=== PATIENT | male | born 1995 ===

== ENCOUNTER 2021-02-22 21:11 | Inpatient (IN) | payer SELFPAY ==
[2021-02-22] MEDS ORDERED: ONDANSETRON 4 MG/2 ML INJ IV ONE (22:59)
[2021-02-22] MEDS ORDERED: FAMOTIDINE 20 MG/2 ML INJ IV ONE (22:59)
[2021-02-22] MEDS ORDERED: SODIUM CHLORIDE 0.9% 1000 ML 1,000 ML IV ONE (22:59)
[2021-02-22] MEDS ORDERED: MORPHINE 4 MG/1 ML INJ IV ONE (22:59)
--- NOTE | 2021-02-22 23:20 | Emergency Department Report ---
ED Abdominal Pain HPI - General Chief Complaint: Abdominal Pain Stated Complaint: STOMACH PAIN Time Seen by Provider: 02/22/21 21:45 Source: patient Mode of arrival: Ambulatory Limitations: No Limitations - History of Present Illness Initial Comments: This is a 25-year-old male nontoxic, well nourished in appearance, no acute signs of distress presents to the ED with c/o of nausea and vomiting and abdominal pain that started yesterday. Patient describes vomiting as food content and yellow gastric acid. Patient describes abdominal pain as cramping and aching with level of 8/10 primarily to the right lower abdomen. Patient denies any radiation of pain. Patient denies chest pain, short of breath, fever, hemoptysis, blood in stool, chills, headache, stiff neck, numbness or tingling. Patient denies any diarrhea or constipation. Denies any blood in stool. Patient denies any recent travels. Patient denies any allergies or significant past medical history. Google Vietnamese translation has been used throughout physical exam and interview. MD Complaint: abdominal pain -: days(s) Location: RLQ Radiation: none Migration to: no migration Severity: mild Severity scale (0 -10): 8 Quality: cramping, aching Consistency: constant Improves With: nothing Worsens With: nothing Associated Symptoms: nausea, vomiting. denies: diarrhea, fever, chills, constipation, dysuria, hematemesis, hematochezia, melena, hematuria, anorexia, syncope - Related Data Allergies Allergy/AdvReac Type Severity Reaction Status Date / Time No Known Allergies Allergy Unverified 02/22/21 22:03 ED Review of Systems ROS: Stated complaint: STOMACH PAIN Other details as noted in HPI Constitutional: denies: chills, fever Eyes: denies: eye pain, eye discharge, vision change ENT: denies: ear pain, throat pain Respiratory: denies: cough, shortness of breath, wheezing Cardiovascular: denies: chest pain, palpitations Endocrine: no symptoms reported Gastrointestinal: abdominal pain, nausea, vomiting. denies: diarrhea, constipation, hematemesis, melena, hematochezia Genitourinary: denies: urgency, dysuria Musculoskeletal: denies: back pain, joint swelling, arthralgia Skin: denies: rash, lesions Neurological: denies: headache, weakness, paresthesias Psychiatric: denies: anxiety, depression Hematological/Lymphatic: denies: easy bleeding, easy bruising ED Physical Exam - General Limitations: No Limitations General appearance: alert, in no apparent distress - Head Head exam: Present: atraumatic, normocephalic - Eye Eye exam: Present: normal appearance - Neck Neck exam: Present: normal inspection, full ROM. Absent: lymphadenopathy - Respiratory Respiratory exam: Present: normal lung sounds bilaterally. Absent: respiratory distress, wheezes, rales, rhonchi, stridor, chest wall tenderness, accessory muscle use, decreased breath sounds, prolonged expiratory - Cardiovascular Cardiovascular Exam: Present: regular rate, normal rhythm, normal heart sounds. Absent: tachycardia, irregular rhythm, systolic murmur, diastolic murmur, rubs, gallop - GI/Abdominal GI/Abdominal exam: Present: soft, tenderness (RLQ), normal bowel sounds. Absent: distended, guarding, rebound, rigid, diminished bowel sounds - Extremities Exam Extremities exam: Present: normal inspection, full ROM, normal capillary refill. Absent: tenderness - Back Exam Back exam: Present: normal inspection, full ROM. Absent: tenderness, CVA tenderness (R), CVA tenderness (L), muscle spasm, paraspinal tenderness, vertebral tenderness, rash noted - Neurological Exam Neurological exam: Present: alert, oriented X3, normal gait - Psychiatric Psychiatric exam: Present: normal affect, normal mood - Skin Skin exam: Present: warm, dry, intact, normal color. Absent: rash ED Course Vital Signs 02/22/21 21:42 Temperature 99.4 F Pulse Rate 77 Respiratory 18 Rate Blood Pressure 148/78 O2 Sat by Pulse 94 Oximetry - Reevaluation(s) Reevaluation #1: 02/22/21 23:20 Patient is speaking in full sentences with no signs of distress noted. - Consultations Consultation #1: 02/23/21 01:20 Patient has been consulted with Dr. Hernandez (general surgery) about patient history, physical exam, and labs/CT abdomen and agrees to ED plan of care and admission. Consultation #2: 02/23/21 01:21 Patient has been consulted with ARTURO Graves (hospitalist) about patient history, physical exam, and labs/imaging results and accepts patient to services for admission. ED Medical Decision Making - Lab Data Result diagrams: 02/22/21 22:46 09/30/21 22:46 - Radiology Data [facility] [address] [place] [address] Cat Scan Report Signed Patient: KEVIN HOPSON MR#: [id number] : 1995 Acct:[id number] Age/Sex: 25 / M ADM Date: 02/22/21 Loc: ED Attending Dr: Ordering Physician: SULEMAN MARINA NP Date of Service: 02/22/21 Procedure(s): CT abdomen pelvis w con Accession Number(s): [id number] cc: SULEMAN MARINA NP CT ABDOMEN AND PELVIS WITHOUT CONTRAST INDICATION: R.L.Q. abdominal pain CONTRAST: Oral, 100 cc Omnipaque 300 IV COMPARISON: None available. All CT scans at this location are performed using CT dose reduction for ALARA by means of automated exposure control. FINDINGS: Lung bases are clear. No pneumoperitoneum is seen. Mild fatty infiltration of the liver is noted without obvious focal lesion or enlargement. Spleen is not enlarged. No abdominal masses are seen. Gallbladder and bile ducts appear within normal limits. No lymphadenopathy is seen. No free fluid is noted. No urinary or bowel obstructive changes are noted. Pelvic masses are seen. A large appendicolith is seen at the base of the appendix. The appendix distal to this point is dilated to a diameter of up to 12 mm though more distally measures 9 mm. Additional appendicoliths are seen more distally. There appears to be slight wall enhancement and thickening. Slight surrounding inflammation is seen. No evidence of perforation or abscess are noted. IMPRESSION: Early acute appendicitis without obvious complication Signer Name: Chandra Alva MD Signed: 02/23/2021 1:10 AM Workstation Name: [id number] Transcribed By: Dictated By: Chandra Alva MD Electronically Authenticated By: Chandra Alva MD Signed Date/Time: 02/23/21109 DD/ 5 TD/TT: - Medical Decision Making 25-year-old male that presents with acute appendicitis. Patient is stable and was examined by me. Patient placed on n.p.o. Patient received IV resuscitation with Zosyn. Consulted with surgery which agrees to admission. Patient admitted with hospitalist. At time of admission, the patient does not seem toxic or ill in appearance. No acute signs of distress noted. Patient agrees to admission treatment plan of care. No further questions noted by the patient. Google Vietnamese translation has been used throughout the whole ED stay visit physical exam, interview, lab/CT results, reassessment, and disposition. Critical care attestation.: If time is entered above; I have spent that time in minutes in the direct care of this critically ill patient, excluding procedure time. ED Disposition Clinical Impression: Appendicitis Qualifiers: Appendicitis type: acute appendicitis Acute appendicitis type: unspecified acute appendicitis type Qualified Code(s): K35.80 - Unspecified acute appendicitis Disposition: ADMITTED INPATIENT Is pt being admited?: Yes Condition: Stable Time of Disposition: 01:28
[2021-02-22 23:25] LABS: Hematocrit 41.6 % (35.5-45.6); Hemoglobin 14.5 gm/dl (11.8-15.2); Mean Corpuscular HGB Conc 35 % (32-34); Mean Corpuscular Volume 87 fl (84-94); Platelet Count 392 K/mm3 (140-440); Red Blood Count 4.76 M/mm3 (3.65-5.03)
[2021-02-22 23:38] LABS: Alanine Aminotransferase 37 units/L (7-56); Albumin 4.5 g/dL (3.9-5); Blood Urea Nitrogen 11 mg/dL (9-20); Calcium 9.3 mg/dL (8.4-10.2); Hemolysis Index 6
[2021-02-22 23:39] LABS: BUN/Creatinine Ratio 18; Bilirubin,Direct < 0.2 mg/dL (0-0.2)
[2021-02-23] MEDS ORDERED: PIPERACIL/TAZOBACTA 4.5/NS 100 4.5 GM/100 ML VIAL IV ONE ×2 (00:12→04:10)
[2021-02-23 00:39] LABS: Mucus,Urine FEW /HPF
--- NOTE | 2021-02-23 01:14 | Cat Scan Report ---
CT ABDOMEN AND PELVIS WITHOUT CONTRAST INDICATION: R.L.Q. abdominal pain CONTRAST: Oral, 100 cc Omnipaque 300 IV COMPARISON: None available. All CT scans at this location are performed using CT dose reduction for ALARA by means of automated e xposure control. FINDINGS: Lung bases are clear. No pneumoperitoneum is seen. Mild fatty infiltration of the liver is noted without obvious focal lesion or enlargement. Spleen is not enlarged. No abdominal masses are se en. Gallbladder and bile ducts appear within normal limits. No lymphadenopathy is seen. No free fluid is noted. No urinary or bowel obstructive changes are noted. Pelvic masses are seen. A large appendicolith is seen at the base of the appendix. The appendix distal to this point is dilat ed to a diameter of up to 12 mm though more distally measures 9 mm. Additional appendicoliths are see n more distally. There appears to be slight wall enhancement and thickening. Slight surrounding infla mmation is seen. No evidence of perforation or abscess are noted. IMPRESSION: Early acute appendicitis without obvious complication Signer Name: Chandra Alva MD Signed: 02/23/2021 1:10 AM Workstation Name: [id number]
[2021-02-23 01:22] LABS: Bilirubin,Urine Negative (Negative); Blood,Urine Negative (Negative); Color,Urine Straw (Yellow); Urobilinogen,Urine < 2.0 mg/dL (<2.0)
[2021-02-23 01:54] LABS: Platelet Estimate Consistent w Auto; RBC Morphology Normal; Total Cells Counted 100
--- NOTE | 2021-02-23 02:13 | History and Physical Report ---
History of Present Illness Date of examination: 02/23/21 Date of admission: 02/23/21 Chief complaint: abdominal pain History of present illness: This is a 25-year-old male seen in ED at bedside. Patient reported abdominal pain. He came to ED with chief complaint of nausea and vomiting and abdominal pain that started yesterday. Patient describes vomiting as food content and yellow gastric acid. Patient describes abdominal pain as cramping and aching with level of 8/10 primarily to the right lower abdomen. Patient denies any radiation of pain. CT of the abdomen is done and showed acute appendicitis without obvious complications. I reviewed patient medical history, blood work, and vital signs. Serum in the urine WBC elevated. Patient is started on em piric antibiotic. General surgeon was consulted from the ED. Past History Past Medical History: No medical history Past Surgical History: No surgical history Social history: full code. denies: prescription drug abuse, IV drug use Family history: no significant family history Medications and Allergies Allergies Allergy/AdvReac Type Severity Reaction Status Date / Time No Known Allergies Allergy Verified 02/23/21 01:57 Review of Systems Constitutional: no lethargy Ears, nose, mouth and throat: no epistaxis, no bleeding gums Cardiovascular: no chest pain Respiratory: no cough, no shortness of breath Gastrointestinal: abdominal pain, nausea, loss of appetite Rectal: no itching, no hemorrhoids Integumentary: no rash, no pruritis Psychiatric: anxiety Hematologic/Lymphatic: no easy bruising, no easy bleeding, no lymphadenopathy, no lymphedema Allergic/Immunologic: no urticaria Exam - Constitutional Vitals: Temp Pulse Resp BP Pulse Ox 99.4 F 77 18 148/78 100 02/22/21 21:42 02/22/21 21:42 02/22/21 21:42 02/22/21 21:42 02/23/21 01:54 General appearance: Present: mild distress, well-nourished - EENT Eyes: Present: PERRL ENT: hearing intact, clear oral mucosa - Neck Neck: Present: supple, normal ROM - Respiratory Respiratory effort: normal Respiratory: bilateral: CTA - Cardiovascular Heart rate: 77 Heart Sounds: Present: S1 & S2. Absent: rub, click - Extremities Extremities: pulses symmetrical, No edema Peripheral Pulses: within normal limits - Abdominal General gastrointestinal: Present: soft, non-tender, non-distended, normal bowel sounds Male genitourinary: Present: normal - Integumentary Integumentary: Present: clear, warm, dry - Musculoskeletal Musculoskeletal: gait normal, strength equal bilaterally - Psychiatric Psychiatric: appropriate mood/affect, intact judgment & insight, cooperative - Neurologic Neurologic: CNII-XII intact, moves all extremities - Allied Health Allied health notes reviewed: nursing Results - Labs CBC & Chem 7: 02/22/21 22:46 02/22/21 22:46 Labs: Abnormal lab results 02/22/21 02/22/21 02/23/21 Range/Units 22:46 22:46 00:15 WBC 22.1 H (4.5-11.0) K/mm3 MCHC 35 H (32-34) % RDW 13.0 L (13.2-15.2) % Seg Neuts % (Manual) 79.0 H (40.0-70.0) % Seg Neutrophils # Man 17.5 H (1.8-7.7) K/mm3 Monocytes # (Manual) 1.3 H (0.0-0.8) K/mm3 Sodium 134 L (137-145) mmol/L Chloride 97.9 L (98-107) mmol/L Creatinine 0.6 L (0.8-1.3) mg/dL Glucose 117 H (75-100) mg/dL Urine WBC (Auto) 10.0 H (0.0-6.0) /HPF Assessment and Plan - Patient Problems (1) Appendicitis Current Visit: No Status: Acute Qualifiers: Appendicitis type: acute appendicitis Acute appendicitis type: unspecified acute appendicitis type Qualified Code(s): K35.80 - Unspecified acute appendicitis Plan to address problem: CT positive for acute appendicitis IV hydration and keep patient n.p.o. Consulted general surgeon he agreed to see patient (2) Leukocytosis (leucocytosis) Current Visit: No Status: Acute Plan to address problem: Elevated blood WBC likely due to appendicitis Empiric antibiotic with Zosyn (3) Hyponatremia Current Visit: No Status: Acute Plan to address problem: Mild hyponatremia Gentle IV hydration normal saline Monitor sodium level (4) Acute cystitis Current Visit: Yes Status: Acute Plan to address problem: Urinalysis positive for elevated WBC Patient is on antibiotic antibiotic. Continue IV hydration (5) DVT prophylaxis Current Visit: No Status: Acute Plan to address problem: SCDhold off anticoagulant patient might need surgery
[2021-02-23] MEDS ORDERED: ACETAMINOPHEN 325 MG TAB PO PRN (02:16)
[2021-02-23] MEDS ORDERED: NALOXONE 0.4 MG/1 ML INJ IV PRN (02:16)
[2021-02-23] MEDS ORDERED: METOCLOPRAMIDE 10 MG/2 ML INJ IV PRN (02:16)
[2021-02-23] MEDS ORDERED: MORPHINE 2 MG/1 ML INJ IV PRN (02:16)
[2021-02-23] MEDS ORDERED: ALUM-MAG HYDROXIDE-SIMETHICONE 200-200-20MG/5ML ORAL LIQD 30 ML PO PRN (02:16)
[2021-02-23] MEDS ORDERED: oxyCODONE /ACETAMINOPHEN 5-325MG TAB PO PRN (02:16)
[2021-02-23] MEDS ORDERED: MORPHINE 4 MG/1 ML INJ IV PRN (02:16)
[2021-02-23] MEDS ORDERED: MAGNESIUM HYDROXIDE (MOM) ORAL LIQD UDC PO PRN (02:16)
[2021-02-23] MEDS ORDERED: ONDANSETRON 4 MG/2 ML INJ IV PRN ×2 (02:16→16:16)
[2021-02-23] MEDS ORDERED: FAMOTIDINE 20 MG/2 ML INJ IV ONE (04:10)
--- NOTE | 2021-02-23 10:20 | Event Note ---
Date: 02/23/21 This is a follow-up from an admission earlier this morning. Patient seen and examined. We will continue to plan as outlined in H&P. Await surgery evaluation. Continue IV antibiotics. Total visit time equals 35 minutes with greater than 50% spent on coordination of care and counseling
[2021-02-23] MEDS: FAMOTIDINE 20 MG/2 ML INJ IV SCH ×2 (11:29→21:27)
[2021-02-23] MEDS ORDERED: BUPIVACAINE/PF (0.25%) 2.5 MG/ML 30 ML VIAL INFILTRATI ONE ×2 (15:24→17:08)
[2021-02-23] MEDS ORDERED: LIDOCAINE (1%) 10 MG/1 ML VIAL 20 ML MDV ONE (15:24)
[2021-02-23] MEDS ORDERED: LIDOCAINE MPF (2%) 20 MG/1 ML VIAL 5 ML ONE (15:58)
[2021-02-23] MEDS ORDERED: ONDANSETRON 4 MG/2 ML INJ ONE (15:58)
[2021-02-23] MEDS ORDERED: HYDROmorphone 1 MG/1 ML INJ ONE (15:58)
[2021-02-23] MEDS ORDERED: ROCURONIUM 50 MG/5 ML INJ IV ONE ×2 (15:58→17:20)
[2021-02-23] MEDS ORDERED: propofoL 200 MG/20 ML VIAL IV ONE (15:59)
[2021-02-23] MEDS ORDERED: LACTATED RINGERS 1,000 ML ONE ×2 (16:02→17:18)
[2021-02-23] MEDS ORDERED: HYDROmorphone 1 MG/1 ML INJ IV PRN (16:16)
--- NOTE | 2021-02-23 16:16 | Anesthesia Day of Surgery ---
Anesthesia Day of Surgery - Day of Surgery Patient Examined: Yes Patient H&P Reviewed: Yes Patient is NPO: Yes
--- NOTE | 2021-02-23 16:16 | Anesthesia Consultation ---
Anesthesia Consult and Med Hx Date of service: 02/23/21 - Airway Anesthetic Teeth Evaluation: Good ROM Head & Neck: Adequate Mental/Hyoid Distance: Adequate Mallampati Class: Class III Intubation Access Assessment: Possibly Difficult - Pre-Operative Health Status ASA Pre-Surgery Classification: ASA1 Proposed Anesthetic Plan: General - Pulmonary Hx Smoking: No Hx Respiratory Symptoms: No - Cardiovascular System Hx Hypertension: No - Central Nervous System CVA: No - Endocrine Hx Renal Disease: No Hx Liver Disease: No Hx Insulin Dependent Diabetes: No Hx Non-Insulin Dependent Diabetes: No Hx Thyroid Disease: No - Other Systems Hx Obesity: Yes (BMI 31)
[2021-02-23] MEDS ORDERED: LIDOCAINE (1%) 10 MG/1 ML VIAL 20 ML MDV INFILTRATI ONE (17:09)
[2021-02-23] MEDS ORDERED: SODIUM CHLORIDE 0.9% IRRIG SOLN 2000 ML IR ONE (17:09)
[2021-02-23] MEDS ORDERED: KETOROLAC 30 MG/1 ML INJ ONE (17:20)
--- NOTE | 2021-02-23 17:34 | Consultation ---
History of Present Illness Consult date: 02/23/21 Reason for consult: abdominal pain - History of present illness History of present illness: 25 yo male with RLQ pain, nausea and vomiting since yesterday. Past History Past Medical History: No medical history Past Surgical History: No surgical history Social history: full code. denies: prescription drug abuse, IV drug use Family history: no significant family history Medications and Allergies Allergies Allergy/AdvReac Type Severity Reaction Status Date / Time No Known Allergies Allergy Verified 02/23/21 01:57 Active Meds: Active Medications Acetaminophen (Acetaminophen 325 Mg Tab) 650 mg PO Q4H PRN PRN Reason: Pain MILD(1-3)/Fever >100.5/FISCHER Al Hydrox/Mg Hydrox/Simethicone (Alum-Mag Hydroxide-Simethicone [id number]/5ml Oral Liqd 30 Ml) 30 ml PO Q4H PRN PRN Reason: Indigestion Famotidine (Famotidine 20 Mg/2 Ml Inj) 20 mg IV BID TRAY Last Admin: 02/23/21 11:29 Dose: 20 mg Documented by: Hydromorphone HCl (Hydromorphone 1 Mg/1 Ml Inj) 0.5 mg IV Q10MIN PRN PRN Reason: Pain , Severe (7-10) Sodium Chloride (Nacl 0.9% 1000 Ml) 1,000 mls @ 75 mls/hr IV DIRECT TRAY Piperacillin Sod/Tazobactam Sod (Zosyn/Ns 4.5gm/100ml) 4.5 gm in 100 mls @ 200 mls/hr IV Q8H TRAY; Protocol Magnesium Hydroxide (Magnesium Hydroxide (Mom) Oral Liqd Udc) 30 ml PO Q4H PRN PRN Reason: Constipation Metoclopramide HCl (Metoclopramide 10 Mg/2 Ml Inj) 10 mg IV Q6H PRN PRN Reason: Nausea And Vomiting Morphine Sulfate (Morphine 2 Mg/1 Ml Inj) 2 mg IV Q4H PRN PRN Reason: Pain, Moderate (4-6) Last Admin: 02/23/21 06:06 Dose: 2 mg Documented by: Morphine Sulfate (Morphine 4 Mg/1 Ml Inj) 4 mg IV Q4H PRN PRN Reason: Pain , Severe (7-10) Naloxone HCl (Naloxone 0.4 Mg/1 Ml Inj) 0.1 mg IV Q2MIN PRN PRN Reason: Res Rate </= 8 or 02 SAT < 92% Ondansetron HCl (Ondansetron 4 Mg/2 Ml Inj) 4 mg IV Q8H PRN PRN Reason: Nausea And Vomiting Ondansetron HCl (Ondansetron 4 Mg/2 Ml Inj) 4 mg IV ONCE PRN PRN Reason: Nausea And Vomiting Oxycodone/Acetaminophen (Oxycodone /Acetaminophen 5-325mg Tab) 1 tab PO Q6H PRN PRN Reason: Pain, Moderate (4-6) Sodium Chloride (Sodium Chloride 0.9% 10 Ml Flush Syringe) 10 ml IV BID TRAY Last Admin: 02/23/21 11:30 Dose: 10 ml Documented by: Review of Systems All systems: negative (none) Exam Vital Signs Temp Pulse Resp BP Pulse Ox 99.4 F 77 18 148/78 94 02/22/21 21:42 02/22/21 21:42 02/22/21 21:42 02/22/21 21:42 02/22/21 21:42 - General physical appearance Positive: well developed, well nourished, no distress - Eyes Positive: PERRL, normal occular movement - ENT Positive: normal pinna, normal nares, normal mucosa, no hearing loss, no congestion - Neck Positive: no masses, no bruits, trachea midline, no venous distension - Respiratory Positive: normal expansion, normal respiratory effort, clear to auscultation - Cardiovascular Rhythm: regular Heart Sounds: Present: S1 & S2. Absent: rub, click - Extremities Extremities: no ischemia, pulses symmetrical, No edema - Breasts Breasts: normal, no mass, no skin changes - Abdomen Abdomen: Present: soft, bowel sounds hypoactive, other (TTP in the RLQ without rebound or guarding.). Absent: distended Hernia: none - Genitourinary Male Genitourinary: normal Female Genitourinary: normal - Integumentary no rash, no growths, no abnormal pigmentation - Neurologic Neurologic: alert and oriented to time, place and person, motor strength and sensation are grossly intact - Musculoskeletal normal gait, normal posture - Psychiatric Psychiatric: appropriate mood/affect, intact judgment & insight Results - Labs 02/22/21 22:46 02/22/21 22:46 Abnormal lab results 0902/22/21 02/23/21 Range/Units 22:46 22:46 00:15 WBC 22.1 H (4.5-11.0) K/mm3 MCHC 35 H (32-34) % RDW 13.0 L (13.2-15.2) % Seg Neuts % (Manual) 79.0 H (40.0-70.0) % Seg Neutrophils # Man 17.5 H (1.8-7.7) K/mm3 Monocytes # (Manual) 1.3 H (0.0-0.8) K/mm3 Sodium 134 L (137-145) mmol/L Chloride 97.9 L (98-107) mmol/L Creatinine 0.6 L (0.8-1.3) mg/dL Glucose 117 H (75-100) mg/dL Urine WBC (Auto) 10.0 H (0.0-6.0) /HPF Diabetes panel 02/22/21 Range/Units 22:46 Sodium 134 L (137-145) mmol/L Potassium 3.6 (3.6-5.0) mmol/L Chloride 97.9 L (98-107) mmol/L Carbon Dioxide 26 (22-30) mmol/L BUN 11 (9-20) mg/dL Creatinine 0.6 L (0.8-1.3) mg/dL Glucose 117 H (75-100) mg/dL Calcium 9.3 (8.4-10.2) mg/dL AST 21 (5-40) units/L ALT 37 (7-56) units/L Alkaline Phosphatase 96 (35-129) units/L Total Protein 8.0 (6.3-8.2) g/dL Albumin 4.5 (3.9-5) g/dL Calcium panel 02/22/21 Range/Units 22:46 Calcium 9.3 (8.4-10.2) mg/dL Albumin 4.5 (3.9-5) g/dL Pituitary panel 02/22/21 Range/Units 22:46 Sodium 134 L (137-145) mmol/L Potassium 3.6 (3.6-5.0) mmol/L Chloride 97.9 L (98-107) mmol/L Carbon Dioxide 26 (22-30) mmol/L BUN 11 (9-20) mg/dL Creatinine 0.6 L (0.8-1.3) mg/dL Glucose 117 H (75-100) mg/dL Calcium 9.3 (8.4-10.2) mg/dL Adrenal panel 02/22/21 Range/Units 22:46 Sodium 134 L (137-145) mmol/L Potassium 3.6 (3.6-5.0) mmol/L Chloride 97.9 L (98-107) mmol/L Carbon Dioxide 26 (22-30) mmol/L BUN 11 (9-20) mg/dL Creatinine 0.6 L (0.8-1.3) mg/dL Glucose 117 H (75-100) mg/dL Calcium 9.3 (8.4-10.2) mg/dL Total Bilirubin 0.70 (0.1-1.2) mg/dL AST 21 (5-40) units/L ALT 37 (7-56) units/L Alkaline Phosphatase 96 (35-129) units/L Total Protein 8.0 (6.3-8.2) g/dL Albumin 4.5 (3.9-5) g/dL - Imaging CT scan - abdomen: report reviewed CT scan - pelvis: report reviewed Assessment and Plan - Patient Problems (1) Appendicitis Current Visit: No Status: Acute Qualifiers: Appendicitis type: acute appendicitis Acute appendicitis type: unspecified acute appendicitis type Qualified Code(s): K35.80 - Unspecified acute appendicitis Plan to address problem: 1) IV Zosyn 2) NPO 3) Lap appy
--- NOTE | 2021-02-23 17:35 | Procedure Note ---
Date of procedure: 02/23/21 Pre-op diagnosis: acute appendicitis Post-op diagnosis: same Procedure: Laparoscopic appendectomy Description of procedure: Pt was placed supine on the OR table. GETA was administered. Abdomen was prepped and draped. Proposed trocar incisions were infiltrated with 8 ml of 0.5% Marcaine. A small infraumbilical incision was made and the peritoneal cavity carefully entered. A Gia port was inserted into the peritoneal cavity and pneumoperitoneum established. Two 5 mm ports were inserted, under direct vision, in the midline of the suprapubic area and in the mid-LLQ laterally. Pt was positioned head and left side down. Appendix was identified and was covered with a yellowish exudate. There was also some free fluid in the pericecal area. This fluid was suctioned and was sent for C&S. Mesoappendix was divided with the Ligasure. Base of the appendix was amputated with an endo-ELIZABETH instrument. Appendix was placed in an endobag and the endobag removed via the infra-umbilical fascial defect. Re-inspection of the staple line revealed the staple line to be secure and hemostatic. The 5 mm ports were removed and there was no bleeding from the port entry sites under low pressure. Gia port was removed and pneumoperitoneum released. The infraumbilical fascial defect was closed with 2 interrupted sutures of 0-Vicryl. Skin incisions were approximated with running subcuticular sutures of 4-0 Monocryl. Skin glue was applied to all incisions. Pt tolerated the procedure well and was taken to PACU in stable condition. Anesthesia: GETA Surgeon: MEAGHAN APARICIO Estimated blood loss: minimal Pathology: list (1) Appendix 2) C&S of intra-peritoneal fluid) Specimen disposition: to lab Condition: stable Disposition: PACU
--- NOTE | 2021-02-23 18:10 | Post Anesthesia Evaluation ---
- Post Anesthesia Evaluation Patient Participated: Yes Airway Patent: Yes Stable Respiratory Function: Yes Nausea/Vomiting: No Temp > 96.8F: Yes Pain Manageable: Yes Adequeate Hydration: Yes Anesthesia Complications: No
[2021-02-23] MEDS: PIPERACIL/TAZOBACTA 4.5/NS 100 4.5 GM/100 ML VIAL IV SCH (21:26)
[2021-02-24] MEDS: PIPERACIL/TAZOBACTA 4.5/NS 100 4.5 GM/100 ML VIAL IV SCH ×3 (01:33→17:37)
[2021-02-24 06:09] LABS: Hematocrit 40.7 % (35.5-45.6); Hemoglobin 14.1 gm/dl (11.8-15.2); Mean Corpuscular HGB Conc 35 % (32-34); Mean Corpuscular Volume 89 fl (84-94); Platelet Count 342 K/mm3 (140-440); Red Blood Count 4.58 M/mm3 (3.65-5.03)
[2021-02-24 06:24] LABS: Alanine Aminotransferase 25 units/L (7-56); Albumin 3.8 g/dL (3.9-5); Blood Urea Nitrogen 11 mg/dL (9-20); Hemolysis Index 9
[2021-02-24 06:37] LABS: BUN/Creatinine Ratio 16
[2021-02-24 08:11] LABS: Total Cells Counted 100
[2021-02-24 08:12] LABS: Platelet Estimate Consistent w Auto; RBC Morphology Normal
--- NOTE | 2021-02-24 10:02 | Progress Note ---
Assessment and Plan Assessment and plan: Sepsis. Patient meets criteria given the fever, leukocytosis and diagnosis of appendicitis Acute appendicitis Cystitis. Hyponatremia. 02/24/2021. Patient is s/p laparoscopic appendectomy. Patient with low-grade fever this morning. We will check blood cultures x2. Continue IV antibiotics for now. Patient tolerating diet. Await surgery recommendations regarding discharge History Interval history: No new issues overnight Hospitalist Physical - Constitutional Vitals: Temp Pulse Resp BP Pulse Ox 98.6 F 80 18 103/45 97 02/24/21 07:37 02/24/21 07:37 02/24/21 07:37 02/24/21 07:37 02/24/21 07:37 General appearance: Present: mild distress, well-nourished - EENT Eyes: Present: PERRL, EOM intact ENT: hearing intact, clear oral mucosa, dentition normal - Neck Neck: Present: supple, normal ROM - Respiratory Respiratory effort: normal Respiratory: bilateral: CTA - Cardiovascular Rhythm: regular Heart Sounds: Present: S1 & S2. Absent: gallop, rub - Extremities Extremities: no ischemia, No edema, Full ROM - Abdominal General gastrointestinal: soft, non-tender, non-distended, normal bowel sounds - Integumentary Integumentary: Present: clear, warm, dry - Neurologic Neurologic: CNII-XII intact, moves all extremities Results - Labs CBC & Chem 7: 02/24/21 05:25 02/24/21 05:25 Labs: Laboratory Last Values WBC 22.8 K/mm3 (4.5-11.0) H 02/24/21 05:25 RBC 4.58 M/mm3 (3.65-5.03) 02/24/21 05:25 Hgb 14.1 gm/dl (11.8-15.2) 02/24/21 05:25 Hct 40.7 % (35.5-45.6) 02/24/21 05:25 MCV 89 fl (84-94) 02/24/21 05:25 MCH 31 pg (28-32) 02/24/21 05:25 MCHC 35 % (32-34) H 02/24/21 05:25 RDW 13.0 % (13.2-15.2) L 02/24/21 05:25 Plt Count 342 K/mm3 (140-440) 02/24/21 05:25 Add Manual Diff Complete 02/24/21 05:25 Total Counted 100 02/24/21 05:25 Seg Neutrophils % Low Voltage Technician 02/24/21 05:25 Seg Neuts % (Manual) 93.0 % (40.0-70.0) H 02/24/21 05:25 Lymphocytes % (Manual) 4.0 % (13.4-35.0) L 02/24/21 05:25 Monocytes % (Manual) 3.0 % (0.0-7.3) 02/24/21 05:25 Nucleated RBC % Not Reportable 02/24/21 05:25 Seg Neutrophils # Man 21.2 K/mm3 (1.8-7.7) H 02/24/21 05:25 Band Neutrophils # 0.0 K/mm3 02/24/21 05:25 Lymphocytes # (Manual) 0.9 K/mm3 (1.2-5.4) L 02/24/21 05:25 Abs React Lymphs (Man) 0.0 K/mm3 02/24/21 05:25 Monocytes # (Manual) 0.7 K/mm3 (0.0-0.8) 02/24/21 05:25 Eosinophils # (Manual) 0.0 K/mm3 (0.0-0.4) 02/24/21 05:25 Basophils # (Manual) 0.0 K/mm3 (0.0-0.1) 02/24/21 05:25 Metamyelocytes # 0.0 K/mm3 02/24/21 05:25 Myelocytes # 0.0 K/mm3 02/24/21 05:25 Promyelocytes # 0.0 K/mm3 02/24/21 05:25 Blast Cells # 0.0 K/mm3 02/24/21 05:25 WBC Morphology Not Reportable 02/24/21 05:25 Hypersegmented Neuts Not Reportable 02/24/21 05:25 Hyposegmented Neuts Not Reportable 02/24/21 05:25 Hypogranular Neuts Not Reportable 02/24/21 05:25 Smudge Cells Not Reportable 02/24/21 05:25 Toxic Granulation Not Reportable 02/24/21 05:25 Toxic Vacuolation Not Reportable 02/24/21 05:25 Dohle Bodies Not Reportable 02/24/21 05:25 Pelger-Huet Anomaly Not Reportable 02/24/21 05:25 [place] Rods Not Reportable 02/24/21 05:25 Platelet Estimate Consistent w auto 02/24/21 05:25 Clumped Platelets Not Reportable 02/24/21 05:25 Plt Clumps, EDTA Not Reportable 02/24/21 05:25 Large Platelets Not Reportable 02/24/21 05:25 Giant Platelets Not Reportable 02/24/21 05:25 Platelet Satelliting Not Reportable 02/24/21 05:25 Plt Morphology Comment Not Reportable 02/24/21 05:25 RBC Morphology Normal 02/24/21 05:25 Dimorphic RBCs Not Reportable 02/24/21 05:25 Polychromasia Not Reportable 02/24/21 05:25 Hypochromasia Not Reportable 02/24/21 05:25 Poikilocytosis Not Reportable 02/24/21 05:25 Anisocytosis Not Reportable 02/24/21 05:25 Microcytosis Not Reportable 02/24/21 05:25 Macrocytosis Not Reportable 02/24/21 05:25 Spherocytes Not Reportable 02/24/21 05:25 Pappenheimer Bodies Not Reportable 02/24/21 05:25 Sickle Cells Not Reportable 02/24/21 05:25 Target Cells Not Reportable 02/24/21 05:25 Tear Drop Cells Not Reportable 02/24/21 05:25 Ovalocytes Not Reportable 02/24/21 05:25 Helmet Cells Not Reportable 02/24/21 05:25 [place] Bodies Not Reportable 02/24/21 05:25 [place] Rings Not Reportable 02/24/21 05:25 Kumar Cells Not Reportable 02/24/21 05:25 Bite Cells Not Reportable 02/24/21 05:25 Crenated Cell Not Reportable 02/24/21 05:25 Elliptocytes Not Reportable 02/24/21 05:25 Acanthocytes (Spur) Not Reportable 02/24/21 05:25 Rouleaux Not Reportable 02/24/21 05:25 Hemoglobin C Crystals Not Reportable 02/24/21 05:25 Schistocytes Not Reportable 02/24/21 05:25 Malaria parasites Not Reportable 02/24/21 05:25 John Bodies Not Reportable 02/24/21 05:25 Hem Pathologist Commnt No 02/24/21 05:25 Sodium 136 mmol/L (137-145) L 02/24/21 05:25 Potassium 3.9 mmol/L (3.6-5.0) 02/24/21 05:25 Chloride 101.0 mmol/L (98-107) 02/24/21 05:25 Carbon Dioxide 17 mmol/L (22-30) L D 02/24/21 05:25 Anion Gap 22 mmol/L 02/24/21 05:25 BUN 11 mg/dL (9-20) 02/24/21 05:25 Creatinine 0.7 mg/dL (0.8-1.3) L 02/24/21 05:25 Estimated GFR > 60 ml/min 02/24/21 05:25 BUN/Creatinine Ratio 16 % 02/24/21 05:25 Glucose 171 mg/dL (75-100) H 02/24/21 05:25 Calcium 9.0 mg/dL (8.4-10.2) 02/24/21 05:25 Total Bilirubin 1.10 mg/dL (0.1-1.2) 02/24/21 05:25 Direct Bilirubin < 0.2 mg/dL (0-0.2) 02/22/21 22:46 Indirect Bilirubin 0.5 mg/dL 02/22/21 22:46 AST 13 units/L (5-40) 02/24/21 05:25 ALT 25 units/L (7-56) 02/24/21 05:25 Alkaline Phosphatase 85 units/L (35-129) 02/24/21 05:25 Total Protein 7.6 g/dL (6.3-8.2) 02/24/21 05:25 Albumin 3.8 g/dL (3.9-5) L 02/24/21 05:25 Albumin/Globulin Ratio 1.0 % 02/24/21 05:25 Lipase 13 units/L (13-60) 02/22/21 22:46 Urine Color Straw (Yellow) 02/23/21 00:15 Urine Turbidity Clear (Clear) 02/23/21 00:15 Urine pH 7.0 (5.0-7.0) 02/23/21 00:15 Ur Specific [place] 1.005 (1.003-1.030) 02/23/21 00:15 Urine Protein 30 mg/dl mg/dL (Negative) 02/23/21 00:15 Urine Glucose (UA) Negative mg/dL (Negative) 02/23/21 00:15 Urine Ketones Negative mg/dL (Negative) 02/23/21 00:15 Urine Blood Negative (Negative) 02/23/21 00:15 Urine Nitrite Negative (Negative) 02/23/21 00:15 Ur Reducing Substances Not Reportable 02/23/21 00:15 Urine Bilirubin Negative (Negative) 02/23/21 00:15 Urine Ictotest Not Reportable 02/23/21 00:15 Urine Urobilinogen < 2.0 mg/dL (<2.0) 02/23/21 00:15 Ur Leukocyte Esterase Negative (Negative) 02/23/21 00:15 Urine WBC (Auto) 10.0 /HPF (0.0-6.0) H 02/23/21 00:15 Urine RBC (Auto) 2.0 /HPF (0.0-6.0) 02/23/21 00:15 U Epithel Cells (Auto) 1.0 /HPF (0-13.0) 02/23/21 00:15 Urine Mucus Few /HPF 02/23/21 00:15 Microbiology: Microbiology 02/23/21 Unknown Abdomen Surgical Culture - Preliminary [place]/IV: Voiding Method Urinal Active Medications - Current Medications Current Medications: Generic Name Dose Route Start Last Admin Trade Name Freq PRN Reason Stop Dose Admin Acetaminophen 650 mg 02/23/21 02:16 Acetaminophen 325 Mg Tab PO Q4H PRN Pain MILD(1-3)/Fever >100.5/FISCHER Al Hydrox/Mg Hydrox/Simethicone 30 ml 02/23/21 02:16 Alum-Mag Hydroxide-Simethicone 637-140-67gc/5ml Oral Liqd 30 Ml PO Q4H PRN Indigestion Famotidine 20 mg 02/23/21 10:00 02/23/21 21:27 Famotidine 20 Mg/2 Ml Inj IV 20 mg BID TRAY Administration Hydromorphone HCl 0.5 mg 02/23/21 16:16 Hydromorphone 1 Mg/1 Ml Inj IV Q10MIN PRN Pain , Severe (7-10) Sodium Chloride 1,000 mls @ 75 mls/hr 02/23/21 02:30 Nacl 0.9% 1000 Ml IV DIRECT TRAY Piperacillin Sod/Tazobactam Sod 4.5 gm in 100 mls @ 200 mls/hr 02/23/21 18:00 02/24/21 01:33 Zosyn/Ns 4.5gm/100ml IV 200 mls/hr Q8H TRAY Administration Protocol Magnesium Hydroxide 30 ml 02/23/21 02:16 Magnesium Hydroxide (Mom) Oral Liqd Udc PO Q4H PRN Constipation Metoclopramide HCl 10 mg 02/23/21 02:16 Metoclopramide 10 Mg/2 Ml Inj IV Q6H PRN Nausea And Vomiting Morphine Sulfate 2 mg 02/23/21 02:16 02/23/21 06:06 Morphine 2 Mg/1 Ml Inj IV 2 mg Q4H PRN Administration Pain, Moderate (4-6) Morphine Sulfate 4 mg 02/23/21 02:16 Morphine 4 Mg/1 Ml Inj IV Q4H PRN Pain , Severe (7-10) Naloxone HCl 0.1 mg 02/23/21 02:16 Naloxone 0.4 Mg/1 Ml Inj IV Q2MIN PRN Res Rate </= 8 or 02 SAT < 92% Ondansetron HCl 4 mg 02/23/21 02:16 Ondansetron 4 Mg/2 Ml Inj IV Q8H PRN Nausea And Vomiting Ondansetron HCl 4 mg 02/23/21 16:16 Ondansetron 4 Mg/2 Ml Inj IV ONCE PRN Nausea And Vomiting Oxycodone/Acetaminophen 1 tab 02/23/21 02:16 Oxycodone /Acetaminophen 5-325mg Tab PO Q6H PRN Pain, Moderate (4-6) Sodium Chloride 10 ml 02/23/21 10:00 02/23/21 21:33 Sodium Chloride 0.9% 10 Ml Flush Syringe IV 10 ml BID TRAY Administration
[2021-02-24] MEDS: FAMOTIDINE 20 MG/2 ML INJ IV SCH ×2 (10:57→21:47)
--- NOTE | 2021-02-24 13:55 | Progress Note ---
Assessment and Plan - Patient Problems (1) Appendicitis Current Visit: No Status: Inactive Qualifiers: Appendicitis type: acute appendicitis Acute appendicitis type: unspecified acute appendicitis type Qualified Code(s): K35.80 - Unspecified acute appendicitis Plan to address problem: 1) FLD 2) CBC and BMP in the am Subjective Date of service: 02/24/21 Patient Reports: Positive: no new complaints, feels better, pain is less, tolerating liquids well Objective Vital Signs - 12hr 02/24/21 02/24/21 02/24/21 03:48 07:37 11:16 Temperature 100.1 F H 98.6 F 98.9 F Pulse Rate 80 80 73 Respiratory 18 18 18 Rate Blood Pressure 112/60 103/45 123/64 O2 Sat by Pulse 98 97 96 Oximetry 02/24/21 12:00 Temperature Pulse Rate 70 Respiratory Rate Blood Pressure O2 Sat by Pulse 98 Oximetry - Abdomen soft, bowel sounds normal (NT) - Labs 02/24/21 05:25 02/24/21 05:25 Diabetes panel 02/24/21 Range/Units 05:25 Sodium 136 L (137-145) mmol/L Potassium 3.9 (3.6-5.0) mmol/L Chloride 101.0 (98-107) mmol/L Carbon Dioxide 17 L D (22-30) mmol/L BUN 11 (9-20) mg/dL Creatinine 0.7 L (0.8-1.3) mg/dL Glucose 171 H (75-100) mg/dL Calcium 9.0 (8.4-10.2) mg/dL AST 13 (5-40) units/L ALT 25 (7-56) units/L Alkaline Phosphatase 85 (35-129) units/L Total Protein 7.6 (6.3-8.2) g/dL Albumin 3.8 L (3.9-5) g/dL Calcium panel 02/24/21 Range/Units 05:25 Calcium 9.0 (8.4-10.2) mg/dL Albumin 3.8 L (3.9-5) g/dL Pituitary panel 02/24/21 Range/Units 05:25 Sodium 136 L (137-145) mmol/L Potassium 3.9 (3.6-5.0) mmol/L Chloride 101.0 (98-107) mmol/L Carbon Dioxide 17 L D (22-30) mmol/L BUN 11 (9-20) mg/dL Creatinine 0.7 L (0.8-1.3) mg/dL Glucose 171 H (75-100) mg/dL Calcium 9.0 (8.4-10.2) mg/dL Adrenal panel 02/24/21 Range/Units 05:25 Sodium 136 L (137-145) mmol/L Potassium 3.9 (3.6-5.0) mmol/L Chloride 101.0 (98-107) mmol/L Carbon Dioxide 17 L D (22-30) mmol/L BUN 11 (9-20) mg/dL Creatinine 0.7 L (0.8-1.3) mg/dL Glucose 171 H (75-100) mg/dL Calcium 9.0 (8.4-10.2) mg/dL Total Bilirubin 1.10 (0.1-1.2) mg/dL AST 13 (5-40) units/L ALT 25 (7-56) units/L Alkaline Phosphatase 85 (35-129) units/L Total Protein 7.6 (6.3-8.2) g/dL Albumin 3.8 L (3.9-5) g/dL
[2021-02-24] MEDS: SODIUM CHLORIDE 0.9% 1000 ML 1,000 ML IV SCH (16:06)
[2021-02-25] MEDS: PIPERACIL/TAZOBACTA 4.5/NS 100 4.5 GM/100 ML VIAL IV SCH ×3 (01:28→17:15)
[2021-02-25 06:27] LABS: Basophils % (Auto) 0.2 % (0.0-1.8); Eosinophils % (Auto) 0.2 % (0.0-4.3); Hematocrit 37.6 % (35.5-45.6); Hemoglobin 13.2 gm/dl (11.8-15.2); Lymphocytes # (Auto) 2.6 K/mm3 (1.2-5.4); Lymphocytes % (Auto) 18.5 % (13.4-35.0); Mean Corpuscular HGB Conc 35 % (32-34); Mean Corpuscular Volume 89 fl (84-94); Monocytes % (Auto) 7.4 % (0.0-7.3); Platelet Count 338 K/mm3 (140-440); Red Blood Count 4.23 M/mm3 (3.65-5.03); Red Cell Distribution Width 13.1 % (13.2-15.2)
[2021-02-25 06:39] LABS: Blood Urea Nitrogen 12 mg/dL (9-20); Calcium 8.6 mg/dL (8.4-10.2); Hemolysis Index 4
[2021-02-25 06:46] LABS: BUN/Creatinine Ratio 17
--- NOTE | 2021-02-25 09:27 | Progress Note ---
Assessment and Plan - Patient Problems (1) Appendicitis Current Visit: No Status: Inactive Qualifiers: Appendicitis type: acute appendicitis Acute appendicitis type: unspecified acute appendicitis type Qualified Code(s): K35.80 - Unspecified acute appendicitis Plan to address problem: 1) Regular diet 2) Ambulate in halls. 3) CBC in the am 4) Can probably be discharged tomorrow after full C&S is completed. Subjective Date of service: 02/25/21 Patient Reports: Positive: no new complaints, feels better, pain is less, tolerating liquids well, flatus Objective Vital Signs - 12hr 02/24/21 02/24/21 02/25/21 22:00 23:18 04:21 Temperature 98.4 F 97.9 F Pulse Rate 57 L 62 Respiratory 16 16 Rate Blood Pressure 116/63 123/67 O2 Sat by Pulse 98 94 97 Oximetry 02/25/21 08:10 Temperature 97.8 F Pulse Rate 49 L Respiratory 18 Rate Blood Pressure 105/58 O2 Sat by Pulse 95 Oximetry - Abdomen soft, bowel sounds normal (NT, ND) - Labs 02/25/21 05:58 02/25/21 05:58 Diabetes panel 02/25/21 Range/Units 05:58 Sodium 138 (137-145) mmol/L Potassium 4.0 (3.6-5.0) mmol/L Chloride 104.3 (98-107) mmol/L Carbon Dioxide 22 (22-30) mmol/L BUN 12 (9-20) mg/dL Creatinine 0.7 L (0.8-1.3) mg/dL Glucose 103 H (75-100) mg/dL Calcium 8.6 (8.4-10.2) mg/dL Calcium panel 02/25/21 Range/Units 05:58 Calcium 8.6 (8.4-10.2) mg/dL Pituitary panel 02/25/21 Range/Units 05:58 Sodium 138 (137-145) mmol/L Potassium 4.0 (3.6-5.0) mmol/L Chloride 104.3 (98-107) mmol/L Carbon Dioxide 22 (22-30) mmol/L BUN 12 (9-20) mg/dL Creatinine 0.7 L (0.8-1.3) mg/dL Glucose 103 H (75-100) mg/dL Calcium 8.6 (8.4-10.2) mg/dL Adrenal panel 02/25/21 Range/Units 05:58 Sodium 138 (137-145) mmol/L Potassium 4.0 (3.6-5.0) mmol/L Chloride 104.3 (98-107) mmol/L Carbon Dioxide 22 (22-30) mmol/L BUN 12 (9-20) mg/dL Creatinine 0.7 L (0.8-1.3) mg/dL Glucose 103 H (75-100) mg/dL Calcium 8.6 (8.4-10.2) mg/dL - Imaging Additional Studies: C&S reviewed.
--- NOTE | 2021-02-25 10:07 | Progress Note ---
Assessment and Plan Assessment and plan: Sepsis. Patient meets criteria given the fever, leukocytosis and diagnosis of appendicitis Acute appendicitis Cystitis. Hyponatremia. 02/24/2021. Patient is s/p laparoscopic appendectomy. Patient with low-grade fever this morning. We will check blood cultures x2. Continue IV antibiotics for now. Patient tolerating diet. Await surgery recommendations regarding discharge 02/25/2021. Surgery has approved for regular diet. Ambulate in the hallway. Follow-up CBC in a.m. Follow-up blood cultures. Anticipate discharge in a.m. History Interval history: No new issues overnight Hospitalist Physical - Constitutional Vitals: Temp Pulse Resp BP Pulse Ox 97.8 F 49 L 18 105/58 95 02/25/21 08:10 02/25/21 08:10 02/25/21 08:10 02/25/21 08:10 02/25/21 08:10 General appearance: Present: mild distress, well-nourished - EENT Eyes: Present: PERRL, EOM intact ENT: hearing intact, clear oral mucosa, dentition normal - Neck Neck: Present: supple, normal ROM - Respiratory Respiratory effort: normal Respiratory: bilateral: CTA - Cardiovascular Rhythm: regular Heart Sounds: Present: S1 & S2. Absent: gallop, rub - Extremities Extremities: no ischemia, No edema, Full ROM - Abdominal General gastrointestinal: soft, non-tender, non-distended, normal bowel sounds - Integumentary Integumentary: Present: clear, warm, dry - Neurologic Neurologic: CNII-XII intact, moves all extremities Results - Labs CBC & Chem 7: 02/25/21 05:58 02/25/21 05:58 Labs: Laboratory Last Values WBC 14.0 K/mm3 (4.5-11.0) H 02/25/21 05:58 RBC 4.23 M/mm3 (3.65-5.03) 02/25/21 05:58 Hgb 13.2 gm/dl (11.8-15.2) 02/25/21 05:58 Hct 37.6 % (35.5-45.6) 02/25/21 05:58 MCV 89 fl (84-94) 02/25/21 05:58 MCH 31 pg (28-32) 02/25/21 05:58 MCHC 35 % (32-34) H 02/25/21 05:58 RDW 13.1 % (13.2-15.2) L 02/25/21 05:58 Plt Count 338 K/mm3 (140-440) 02/25/21 05:58 Lymph % (Auto) 18.5 % (13.4-35.0) 02/25/21 05:58 [place] % (Auto) 7.4 % (0.0-7.3) H 02/25/21 05:58 Eos % (Auto) 0.2 % (0.0-4.3) 02/25/21 05:58 Baso % (Auto) 0.2 % (0.0-1.8) 02/25/21 05:58 Lymph # (Auto) 2.6 K/mm3 (1.2-5.4) 02/25/21 05:58 [place] # (Auto) 1.0 K/mm3 (0.0-0.8) H 02/25/21 05:58 Eos # (Auto) 0.0 K/mm3 (0.0-0.4) 02/25/21 05:58 Baso # (Auto) 0.0 K/mm3 (0.0-0.1) 02/25/21 05:58 Add Manual Diff Complete 02/24/21 05:25 Total Counted 100 02/24/21 05:25 Seg Neutrophils % 73.7 % (40.0-70.0) H 02/25/21 05:58 Seg Neuts % (Manual) 93.0 % (40.0-70.0) H 02/24/21 05:25 Lymphocytes % (Manual) 4.0 % (13.4-35.0) L 02/24/21 05:25 Monocytes % (Manual) 3.0 % (0.0-7.3) 02/24/21 05:25 Nucleated RBC % Not Reportable 02/24/21 05:25 Seg Neutrophils # 10.3 K/mm3 (1.8-7.7) H 02/25/21 05:58 Seg Neutrophils # Man 21.2 K/mm3 (1.8-7.7) H 02/24/21 05:25 Band Neutrophils # 0.0 K/mm3 02/24/21 05:25 Lymphocytes # (Manual) 0.9 K/mm3 (1.2-5.4) L 02/24/21 05:25 Abs React Lymphs (Man) 0.0 K/mm3 02/24/21 05:25 Monocytes # (Manual) 0.7 K/mm3 (0.0-0.8) 02/24/21 05:25 Eosinophils # (Manual) 0.0 K/mm3 (0.0-0.4) 02/24/21 05:25 Basophils # (Manual) 0.0 K/mm3 (0.0-0.1) 02/24/21 05:25 Metamyelocytes # 0.0 K/mm3 02/24/21 05:25 Myelocytes # 0.0 K/mm3 02/24/21 05:25 Promyelocytes # 0.0 K/mm3 02/24/21 05:25 Blast Cells # 0.0 K/mm3 02/24/21 05:25 WBC Morphology Not Reportable 02/24/21 05:25 Hypersegmented Neuts Not Reportable 02/24/21 05:25 Hyposegmented Neuts Not Reportable 02/24/21 05:25 Hypogranular Neuts Not Reportable 02/24/21 05:25 Smudge Cells Not Reportable 02/24/21 05:25 Toxic Granulation Not Reportable 02/24/21 05:25 Toxic Vacuolation Not Reportable 02/24/21 05:25 Dohle Bodies Not Reportable 02/24/21 05:25 Pelger-Huet Anomaly Not Reportable 02/24/21 05:25 [place] Rods Not Reportable 02/24/21 05:25 Platelet Estimate Consistent w auto 02/24/21 05:25 Clumped Platelets Not Reportable 02/24/21 05:25 Plt Clumps, EDTA Not Reportable 02/24/21 05:25 Large Platelets Not Reportable 02/24/21 05:25 Giant Platelets Not Reportable 02/24/21 05:25 Platelet Satelliting Not Reportable 02/24/21 05:25 Plt Morphology Comment Not Reportable 02/24/21 05:25 RBC Morphology Normal 02/24/21 05:25 Dimorphic RBCs Not Reportable 02/24/21 05:25 Polychromasia Not Reportable 02/24/21 05:25 Hypochromasia Not Reportable 02/24/21 05:25 Poikilocytosis Not Reportable 02/24/21 05:25 Anisocytosis Not Reportable 02/24/21 05:25 Microcytosis Not Reportable 02/24/21 05:25 Macrocytosis Not Reportable 02/24/21 05:25 Spherocytes Not Reportable 02/24/21 05:25 Pappenheimer Bodies Not Reportable 02/24/21 05:25 Sickle Cells Not Reportable 02/24/21 05:25 Target Cells Not Reportable 02/24/21 05:25 Tear Drop Cells Not Reportable 02/24/21 05:25 Ovalocytes Not Reportable 02/24/21 05:25 Helmet Cells Not Reportable 02/24/21 05:25 [place] Bodies Not Reportable 02/24/21 05:25 [place] Rings Not Reportable 02/24/21 05:25 Kumar Cells Not Reportable 02/24/21 05:25 Bite Cells Not Reportable 02/24/21 05:25 Crenated Cell Not Reportable 02/24/21 05:25 Elliptocytes Not Reportable 02/24/21 05:25 Acanthocytes (Spur) Not Reportable 02/24/21 05:25 Rouleaux Not Reportable 02/24/21 05:25 Hemoglobin C Crystals Not Reportable 02/24/21 05:25 Schistocytes Not Reportable 02/24/21 05:25 Malaria parasites Not Reportable 02/24/21 05:25 John Bodies Not Reportable 02/24/21 05:25 Hem Pathologist Commnt No 02/24/21 05:25 Sodium 138 mmol/L (137-145) 02/25/21 05:58 Potassium 4.0 mmol/L (3.6-5.0) 02/25/21 05:58 Chloride 104.3 mmol/L (98-107) 02/25/21 05:58 Carbon Dioxide 22 mmol/L (22-30) 02/25/21 05:58 Anion Gap 16 mmol/L 02/25/21 05:58 BUN 12 mg/dL (9-20) 02/25/21 05:58 Creatinine 0.7 mg/dL (0.8-1.3) L 02/25/21 05:58 Estimated GFR > 60 ml/min 02/25/21 05:58 BUN/Creatinine Ratio 17 % 02/25/21 05:58 Glucose 103 mg/dL (75-100) H 02/25/21 05:58 Calcium 8.6 mg/dL (8.4-10.2) 02/25/21 05:58 Total Bilirubin 1.10 mg/dL (0.1-1.2) 02/24/21 05:25 Direct Bilirubin < 0.2 mg/dL (0-0.2) 02/22/21 22:46 Indirect Bilirubin 0.5 mg/dL 02/22/21 22:46 AST 13 units/L (5-40) 02/24/21 05:25 ALT 25 units/L (7-56) 02/24/21 05:25 Alkaline Phosphatase 85 units/L (35-129) 02/24/21 05:25 Total Protein 7.6 g/dL (6.3-8.2) 02/24/21 05:25 Albumin 3.8 g/dL (3.9-5) L 02/24/21 05:25 Albumin/Globulin Ratio 1.0 % 02/24/21 05:25 Lipase 13 units/L (13-60) 02/22/21 22:46 Urine Color Straw (Yellow) 02/23/21 00:15 Urine Turbidity Clear (Clear) 02/23/21 00:15 Urine pH 7.0 (5.0-7.0) 02/23/21 00:15 Ur Specific [place] 1.005 (1.003-1.030) 02/23/21 00:15 Urine Protein 30 mg/dl mg/dL (Negative) 02/23/21 00:15 Urine Glucose (UA) Negative mg/dL (Negative) 02/23/21 00:15 Urine Ketones Negative mg/dL (Negative) 02/23/21 00:15 Urine Blood Negative (Negative) 02/23/21 00:15 Urine Nitrite Negative (Negative) 02/23/21 00:15 Ur Reducing Substances Not Reportable 02/23/21 00:15 Urine Bilirubin Negative (Negative) 02/23/21 00:15 Urine Ictotest Not Reportable 02/23/21 00:15 Urine Urobilinogen < 2.0 mg/dL (<2.0) 02/23/21 00:15 Ur Leukocyte Esterase Negative (Negative) 02/23/21 00:15 Urine WBC (Auto) 10.0 /HPF (0.0-6.0) H 02/23/21 00:15 Urine RBC (Auto) 2.0 /HPF (0.0-6.0) 02/23/21 00:15 U Epithel Cells (Auto) 1.0 /HPF (0-13.0) 02/23/21 00:15 Urine Mucus Few /HPF 02/23/21 00:15 Microbiology: Microbiology 02/24/21 13:39 Peripheral/Venous Blood Culture - Preliminary Culture in Progress 02/24/21 13:39 Peripheral/Venous Blood Culture - Preliminary Culture in Progress 02/23/21 Unknown Abdomen Surgical Culture - Preliminary Gram Negative Ihsan 02/23/21 00:15 Urine,Clean Catch Urine Culture - Preliminary NO GROWTH AFTER 24 HOURS Calero/IV: Voiding Method Urinal Active Medications - Current Medications Current Medications: Generic Name Dose Route Start Last Admin Trade Name Freq PRN Reason Stop Dose Admin Acetaminophen 650 mg 02/23/21 02:16 Acetaminophen 325 Mg Tab PO Q4H PRN Pain MILD(1-3)/Fever >100.5/FISCHER Al Hydrox/Mg Hydrox/Simethicone 30 ml 02/23/21 02:16 Alum-Mag Hydroxide-Simethicone 713-986-10bo/5ml Oral Liqd 30 Ml PO Q4H PRN Indigestion Famotidine 20 mg 02/23/21 10:00 02/24/21 21:47 Famotidine 20 Mg/2 Ml Inj IV 20 mg BID TRAY Administration Hydromorphone HCl 0.5 mg 02/23/21 16:16 Hydromorphone 1 Mg/1 Ml Inj IV Q10MIN PRN Pain , Severe (7-10) Sodium Chloride 1,000 mls @ 75 mls/hr 02/23/21 02:30 02/24/21 16:06 Nacl 0.9% 1000 Ml IV 75 mls/hr DIRECT TRAY Administration Piperacillin Sod/Tazobactam Sod 4.5 gm in 100 mls @ 200 mls/hr 02/23/21 18:00 02/25/21 01:28 Zosyn/Ns 4.5gm/100ml IV 200 mls/hr Q8H TRAY Administration Protocol Magnesium Hydroxide 30 ml 02/23/21 02:16 Magnesium Hydroxide (Mom) Oral Liqd Udc PO Q4H PRN Constipation Metoclopramide HCl 10 mg 02/23/21 02:16 Metoclopramide 10 Mg/2 Ml Inj IV Q6H PRN Nausea And Vomiting Morphine Sulfate 2 mg 02/23/21 02:16 02/23/21 06:06 Morphine 2 Mg/1 Ml Inj IV 2 mg Q4H PRN Administration Pain, Moderate (4-6) Morphine Sulfate 4 mg 02/23/21 02:16 Morphine 4 Mg/1 Ml Inj IV Q4H PRN Pain , Severe (7-10) Naloxone HCl 0.1 mg 02/23/21 02:16 Naloxone 0.4 Mg/1 Ml Inj IV Q2MIN PRN Res Rate </= 8 or 02 SAT < 92% Ondansetron HCl 4 mg 02/23/21 02:16 Ondansetron 4 Mg/2 Ml Inj IV Q8H PRN Nausea And Vomiting Ondansetron HCl 4 mg 02/23/21 16:16 Ondansetron 4 Mg/2 Ml Inj IV ONCE PRN Nausea And Vomiting Oxycodone/Acetaminophen 1 tab 02/23/21 02:16 Oxycodone /Acetaminophen 5-325mg Tab PO Q6H PRN Pain, Moderate (4-6) Sodium Chloride 10 ml 02/23/21 10:00 02/24/21 21:47 Sodium Chloride 0.9% 10 Ml Flush Syringe IV Not Given BID TRAY
[2021-02-25] MEDS: FAMOTIDINE 20 MG/2 ML INJ IV SCH ×2 (10:21→21:47)
[2021-02-25] MEDS: SODIUM CHLORIDE 0.9% 1000 ML 1,000 ML IV SCH (15:10)
[2021-02-26] MEDS: PIPERACIL/TAZOBACTA 4.5/NS 100 4.5 GM/100 ML VIAL IV SCH ×2 (02:54→09:16)
[2021-02-26] MEDS: SODIUM CHLORIDE 0.9% 1000 ML 1,000 ML IV SCH (02:57)
[2021-02-26 04:23] VITALS: BP 122/74
[2021-02-26 06:23] LABS: Basophils # (Auto) 0.1 K/mm3 (0.0-0.1); Basophils % (Auto) 0.5 % (0.0-1.8); Eosinophils # (Auto) 0.1 K/mm3 (0.0-0.4); Eosinophils % (Auto) 0.8 % (0.0-4.3); Hematocrit 39.8 % (35.5-45.6); Hemoglobin 13.8 gm/dl (11.8-15.2); Lymphocytes # (Auto) 2.2 K/mm3 (1.2-5.4); Lymphocytes % (Auto) 17.5 % (13.4-35.0); Mean Corpuscular HGB Conc 35 % (32-34); Mean Corpuscular Volume 88 fl (84-94); Monocytes # (Auto) 0.8 K/mm3 (0.0-0.8); Monocytes % (Auto) 6.7 % (0.0-7.3); Platelet Count 398 K/mm3 (140-440); Red Blood Count 4.54 M/mm3 (3.65-5.03); Red Cell Distribution Width 13.4 % (13.2-15.2)
--- NOTE | 2021-02-26 09:19 | Discharge Summary ---
Providers - Providers Date of Admission: 02/25/21 14:45 Date of discharge: 02/26/21 Attending physician: CHERRIE THOMASON 02/23/21 01:22 Consult to Physician [CONS] Urgent Comment: Consulting Provider: MEAGHAN APARICIO Physician Instructions: Reason For Exam: yesy Primary care physician: [facility] [employer] Hospitalization Reason for admission: Abdominal pain Condition: Stable Hospital course: 25-year-old male who presented through the emergency department with complaints of right lower quadrant abdominal pain, nausea and vomiting 1 day prior to admission. The patient was admitted with diagnosis of sepsis, acute appendicitis, cystitis and hyponatremia. CT scan revealed acute appendicitis. Hospital course: 02/24/2021. Patient is s/p laparoscopic appendectomy. Patient with low-grade fever this morning. We will check blood cultures x2. Continue IV antibiotics for now. Patient tolerating diet. Await surgery recommendations regarding discharge 02/25/2021. Surgery has approved for regular diet. Ambulate in the hallway. Follow-up CBC in a.m. Follow-up blood cultures. Anticipate discharge in a.m. Patient was noted to have leukocytosis which trended back down to normal 02/26/2021. Patient's leukocytosis trended to near normal range of 12.1 and blood cultures have been negative. Patient received IV antibiotics of Zosyn which will now be discontinued. Patient is felt to have received maximal hospital benefit for discharge. Dedicated discharge time 32 minutes Disposition: 01 HOME / SELF CARE / HOMELESS Final Discharge Diagnosis (Prints w/discharge instructions): Sepsis, acute appendicitis, cystitis, hyponatremia Core Measure Documentation - Palliative Care Palliative Care/ Comfort Measures: Not Applicable - Core Measures Any of the following diagnoses?: none Exam - Constitutional Vitals: Temp Pulse Resp BP Pulse Ox 98.2 F 50 L 18 122/74 98 02/26/21 04:06 02/26/21 04:06 02/26/21 04:06 02/26/21 04:06 02/26/21 04:06 General appearance: Present: no acute distress, well-nourished - EENT Eyes: Present: PERRL ENT: hearing intact, clear oral mucosa - Neck Neck: Present: supple, normal ROM - Respiratory Respiratory effort: normal Respiratory: bilateral: CTA - Cardiovascular Heart Sounds: Present: S1 & S2. Absent: rub, click - Extremities Extremities: pulses symmetrical, No edema Peripheral Pulses: within normal limits - Abdominal General gastrointestinal: Present: soft, non-tender, non-distended, normal bowel sounds Male genitourinary: Present: normal - Integumentary Integumentary: Present: clear, warm, dry - Musculoskeletal Musculoskeletal: gait normal, strength equal bilaterally - Psychiatric Psychiatric: appropriate mood/affect, intact judgment & insight - Neurologic Neurologic: CNII-XII intact, moves all extremities Plan Activity: advance as tolerated Weight Bearing Status: Weight Bear as Tolerated Diet: regular Wound: per your surgeon's advice Follow up with: PRIMARY CARE, [Primary Care Provider] - 7 Days MEAGHAN APARICIO MD [Staff Physician] - 7 Days Prescriptions: oxyCODONE /ACETAMINOPHEN [Percocet 5/325 mg] 1 tab PO Q6H PRN #10 tablet PRN Reason: Pain, Moderate (4-6)
[2021-02-26] MEDS ORDERED: FAMOTIDINE 20 MG TAB PO SCH (10:00)
--- NOTE | 2021-02-26 13:13 | Progress Note ---
Assessment and Plan - Patient Problems (1) Appendicitis Current Visit: No Status: Inactive Qualifiers: Appendicitis type: acute appendicitis Acute appendicitis type: unspecified acute appendicitis type Qualified Code(s): K35.80 - Unspecified acute appendicitis Plan to address problem: 1) Okay for discharge 2) F/u with me in 2 weeks 3) No lifting or straining 4) May shower 5) Rx for narcotic of choice and coverage of E. coli Subjective Date of service: 02/26/21 Patient Reports: Positive: no new complaints, feels better, tolerating a regular diet, flatus, bowel movement Objective Vital Signs - 12hr 02/26/21 02/26/21 02/26/21 04:06 10:00 12:00 Temperature 98.2 F Pulse Rate 50 L 64 Respiratory 18 18 Rate Blood Pressure 122/74 O2 Sat by Pulse 98 98 Oximetry - Abdomen soft, bowel sounds normal (NT) - Labs 02/26/21 06:06 02/25/21 05:58
== END 2021-02-26 14:22 | disposition home or self-care (01) | DRG 854 ==
LOC: ED 21:11 → 4A 02-23 02:16 → OBSVTOIN 02-25 14:45
PROVIDERS: ADMIT Internal Medicine Geriatric Medicine; ATTEND Hospitalist
PROC: 0DTJ4ZZ Resection of Appendix, Percutaneous Endoscopic Approach (ICD-10-PCS; principal; 2021-02-23)
DX: A41.9 Sepsis, unspecified organism (principal); K35.80 Unspecified acute appendicitis; N30.00 Acute cystitis without hematuria; E87.1 Hypo-osmolality and hyponatremia; Z79.899 Other long term (current) drug therapy
CPT/HCPCS: 36415; 74177; 80048; 80053; 80076; 81001; 83690; 85007; 85025; 87040; 87076; 87086; 87116; 87186; 88304; G0378; A4217; J1170; J1885; J1956; J2270; J2405; J2543; J2704; J7030; J7120; Q9967